=== PATIENT | male | born 1995 | race Two or more races ===

== ENCOUNTER 2017-09-07 12:25 | Emergency (ER) | payer OTHER ==
[2017-09-07 12:36] VITALS: BP 111/65; PULSE 69; TEMP 98.6; BMI 26.6
--- NOTE | 2017-09-07 12:36 | PDOC ---
History of Present Illness - General Chief Complaint: Injury Stated Complaint: RT KNEE INJURY Time Seen by Provider: 09/07/17 12:30 History Source: Patient Exam Limitations: No Limitations - History of Present Illness Initial Comments: 09/07/17 12:31 22 y/o male was on his knee yesterday and noticed a crack and patella was not in alignment. Went back into place last night but knee swollen and painful. Able to walk on it but unable to extend completely. Had surgery on both knees 10 months ago and receives PT. Has been having trouble with right knee for a while after surgery. No fever or chills. No fall or trauma. Scheduled for MRI this week and sees Orthopedics. Took Aleve for the pain. Timing/Duration: intermittent Severity: mild Past History - Past Medical History Allergies/Adverse Reactions: Allergies Allergy/AdvReac Type Severity Reaction Status Date / Time No Known Allergies Allergy Verified 09/07/17 12:28 Home Medications: Ambulatory Orders Albuterol Sulfate Inhaler - [Ventolin Hfa Inhaler -] 1 - 2 inh PO QID PRN Review of Systems - Review of Systems Able to Perform ROS?: Yes Is the patient limited Mexican proficient: No Constitutional: No: Chills, Fever Respiratory: No: Cough, Shortness of Breath Cardiac (ROS): No: Chest Pain, Palpitations Musculoskeletal: Yes: Joint Pain Integumentary: No: Bruising, Erythema Neurological: No: Numbness, Paresthesia *Physical Exam - Physical Exam General Appearance: Yes: Nourished, Appropriately Dressed. No: Apparent Distress HEENT: positive: EOMI, GRACIELA, Normal ENT Inspection, Normal Voice Neck: positive: Trachea midline, Normal Thyroid, Supple. negative: Tender Respiratory/Chest: positive: Lungs Clear, Normal Breath Sounds Cardiovascular: positive: Regular Rhythm Vascular Pulses: Femoral (R): 4+, Femoral (L): 4+, Carotid (R): 4+, Carotid (L) : 4+, Dorsalis-Pedis (R): 4+, Doralis-Pedis (L): 4+ Gastrointestinal/Abdominal: positive: Normal Bowel Sounds, Flat, Soft. negative : Tender, Organomegaly Lymphatic: negative: Adenopathy, Tenderness, Other Musculoskeletal: positive: Normal Inspection. negative: CVA Tenderness Extremity: positive: Normal Capillary Refill, Normal Inspection, Swelling ( swelling to prepatellar area). negative: Normal Range of Motion (decreased ROM of right knee, swollen, non tender, patella in alignment, mild varus/valgus maneuvers neg Bee test), Tender, Coldness, Calf Tenderness, Erythema Integumentary: positive: Normal Color, Dry, Warm. 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, Fully Oriented, Alert, Normal Mood/ Affect, Normal Response, Motor Strength 03/28 ED Treatment Course - ADDITIONAL ORDERS Additional order review: 09/07/17 12:35 Right knee pain/swelling, will obtain x-ray to right knee to r/o fracture Will need MRI and Orthopedic follow up Oj wrap and crutches at home as per patient - RADIOLOGY Radiology Studies Ordered: Category Date Time Status KNEE 2 POS-RIGHT [RAD] Stat Radiology 09/07/17 12:31 Ordered 09/07/17 12:50 right knee: hardware in place, no fx seen, STS *DC/Admit/Observation/Transfer Diagnosis at time of Disposition: Sprain of knee Qualifiers: Encounter type: initial encounter Involved ligament of knee: unspecified ligament Laterality: right Qualified Code(s): S83.91XA - Sprain of unspecified site of right knee, initial encounter; S83.91XA - Sprain of unspecified site of right knee, initial encounter - Discharge Dispostion Disposition: HOME Condition at time of disposition: Stable Admit: No - Patient Instructions Printed Discharge Instructions: DI for Knee Sprain Additional Instructions: Ice, Motrin, rest, elevate Oj wrap and crutches Follow up with Orthopedics this week for MRI If worsen return to ER
== END 2017-09-07 13:15 | disposition home or self-care (01) ==
LOC: FER 12:25
DX: S83.91XA Sprain of unspecified site of right knee, initial encounter (principal); X58.XXXA Exposure to other specified factors, initial encounter; Y93.89 Activity, other specified; Y92.9 Unspecified place or not applicable
CPT/HCPCS: 73560-TC-RT; 99282-25

== ENCOUNTER → 2018-03-03 | Emergency (ER) | payer OTHER ==
[~2018-03-03] MED LIST: ACETAMINOPHEN 500 MG TABLET (FP) PO ONE; ALBUTEROL SO4 2.5/IPRATROPIUM 0.5 INH SOL 3 ML VIAL.NEB. NEB ONE; AZITHROMYCIN 250 MG TABLET PO ONE
[2018-03-03 21:54] VITALS: BP 102/45; PULSE 88; TEMP 98.3; BMI 26.4
--- NOTE | 2018-03-03 23:37 | PDOC ---
History of Present Illness - General Chief Complaint: Respiratory Stated Complaint: SHORT OF BREATH COUGH NASAL CONGESTION Time Seen by Provider: 03/03/18 21:28 History Source: Patient Exam Limitations: No Limitations - History of Present Illness Initial Comments: 03/03/18 23:28 This is a 22-year-old male who comes in complaining of shortness of breath and cough 5 days. Patient has a history of asthma. Patient has been using his nebulizer with some relief. Patient said he is coughing up thick green phlegm and has had some chills but denies any fevers. Patient is afebrile here in the emergency room. Patient is otherwise healthy and denies any other medical problems. Patient is also complaining of a headache from all of the coughing. PAST MEDICAL HISTORY: no significant history PAST SURGICAL HISTORY: no significant history FAMILY HISTORY: no pertinant history SOCIAL HISTORY: Pt lives with family and is employed. MEDICATIONS: reviewed ALLERGIES: As per nursing notes Review of Systems General: No fevers + chills, no weakness, no weight loss HEENT: No change in vision. No sore throat,. No ear pain CardioVascular: No chest pain or shortness of breath Respiratory:+ cough, + wheezing. Gastrointestinal: no nausea, vomitting, diarrhea or constipation, No rectal bleeding Genitourinary: No dysuria, hematuria, or frequency Musculoskeletal: No joint or muscle pain or swelling Neurologic: + headache, vertigo, dizziness or loss of consciousness Psychiatric: nor depression Skin: No rashes or easy bruising Endocrine: no increased thirst or abnormal weight change Allergic: no skin or latex allergy All other systems reviewed and normal Exam: General: Well-nourished well-developed individual, no acute distress HEENT: Throat: Normal, tonsils normal, no erythema or exudate Neck: Supple, no meningeal signs, no lymphadenopathy Eyes::Pupils equal reactive and round, extraocular motion intact Chest: Nontender to palpation Cardiac: S1-S2 normal, regular rate and rhythm, no murmurs rubs or gallops Respiratory: Lungs clear to auscultation bilateral Abdomen: Soft, nondistended, normal bowel sounds, nontender to palpation diffusely Extremities: Warm, dry, no cyanosis, clubbing, or edema Skin: No rashes Neuro: Alert and oriented x3, CN II - XII intact, nonfocal exam with normal strength, normal sensation, normal reflexes, normal gait, Psych: Normal mood and affect 03/03/18 23:38 Went in to reevaluate patient and patient had eloped. Patient did not receive any of the medication that was ordered. Past History - Past Medical History Allergies/Adverse Reactions: Allergies Allergy/AdvReac Type Severity Reaction Status Date / Time No Known Allergies Allergy Verified 09/07/17 12:28 Home Medications: Ambulatory Orders Albuterol 0.083% Nebulizer Renetta [Ventolin 0.083% Nebulizer Soln -] 1 amp NEB PRN 03/03/18 Albuterol Sulfate Inhaler - [Ventolin HFA Inhaler -] 1 puff IH PRN 03/03/18 Asthma: Yes COPD: No - Suicide/Smoking/Psychosocial Hx Smoking History: Never smoked Have you smoked in the past 12 months: No Information on smoking cessation initiated: No Hx Alcohol Use: No Drug/Substance Use Hx: No Substance Use Type: None *Physical Exam - Vital Signs Last Vital Signs Temp Pulse Resp BP Pulse Ox 98.3 F 88 20 102/45 100 03/03/18 21:26 03/03/18 21:26 03/03/18 21:26 03/03/18 21:26 03/03/18 21:26 *DC/Admit/Observation/Transfer Diagnosis at time of Disposition: Cough - Discharge Dispostion Disposition: ELOPED Condition at time of disposition: Stable - Referrals - Patient Instructions - Post Discharge Activity
== END | disposition left against medical advice (07) ==
LOC: FER 21:25
DX: R05 Cough (principal)
CPT/HCPCS: 99282-25